=== PATIENT | female | born 1965 | race Caucasian/White ===

== ENCOUNTER 2016-09-19 20:38 | Emergency (ER) | payer BC ==
--- OUTSIDE RECORDS SUMMARY | 2016-09-19 22:14 | XMS REPORT | Continuity of Care Document ---
:1965 Author Organization [facility] ([facility]) Address [address] [place] [address] Phone [phone] Care Team Providers Name Role Phone Unavailable Primary Care Provider Unavailable Source Comments This disclosure is being made pursuant to the Care Everywhere program, applicable federal and state laws, and may not contain all informaitonavailable regarding this patient.[facility] ([facility]) Active Allergies and Adverse Reactions Not on File Current Medications Not on file Active Problems Not on file Social History Tobacco Use Types Packs/Day Years Used Date Never Assessed Last Filed Vital Signs Vital Sign Reading Time Taken Blood Pressure - - Pulse - - Temperature - - Respiratory Rate - - Height 1.63 m (5' 4.17") 08/19/2000 3:34 PM CDT Weight 109.997 kg (242 lb 8 oz) 08/19/2000 3:34 PM CDT Body Mass Index 41.4 08/19/2000 3:34 PM CDT Oxygen Saturation - - Plan of Care Health Maintenance Due Date Last Done Comments Hepatitis B Vaccine (1 of 3 - Primary Series) 1965 Tdap Vaccine 1977 Lipid Disorder Screening 1984 MMR Vaccine 1984 Td Vaccine 1984 Cervical Cancer Screening 1996 Mammogram 2006 Influenza Vaccine: Seasonal (#1) 12/12/2015 Results from Last 3 Months Not on file
[2016-09-19] MEDS ORDERED: ONDANSETRON 4 MG TAB.RAPDIS PO ONE (22:15)
[2016-09-19] MEDS ORDERED: KETOROLAC TROMETHAMINE 60 MG/2 ML VIAL IM ONE ×2 (22:15→22:22)
[2016-09-19 22:16] LABS: Urine Bilirubin Negative (NEGATIVE); Urine Blood 50 /ul (NEGATIVE); Urine Ketone Negative (NEGATIVE); Urine Nitrite Negative (NEGATIVE); Urine Protein 30 mg/dL (NEGATIVE); Urine Specific Gravity >=1.030 SP.GR. (1.005-1.010); Urine Urobilinogen Normal (NORMAL); Urine pH 5.5 pH (5.0-7.0)
--- NOTE | 2016-09-19 22:21 | ERNOTE ---
ER Female HPI Date of Service: 09/19/16 Stated Complaint: SIDE PAIN Presenting Symptoms: other - R flank pain Time Seen by Provider: 09/19/16 22:07 Source: patient Exam Limitations: no limitations Immunizations: IMMUNIZATION HX Immunizations Up to Date Yes History of Influenza Vaccine No Allergies/Adverse Reactions: Allergies codeine Adverse Reaction (Verified 09/19/16 20:56) Home Medications: HOME MEDICATIONS Venlafaxine HCl [Effexor] 75 mg PO DAILY 06/13/15 [Last Taken Unknown] Ciprofloxacin HCl 500 mg PO BID #20 tablet 09/19/16 [Last Taken Unknown] Naproxen [Naprosyn] 500 mg PO BID PRN #60 tab 09/19/16 [Last Taken Unknown] - History of Present Illness Narrative: Pt. comes in with c/o R flank pain for two days. Pt. denies any fevers, SOB, CP but does state that she has nausea and knows that she has head some "clinking " in the toilet as she feels that she has passed some kidney stones. Pt. has a hx of kidney stones in the past. Pt. denies any prehospital treatment or alleviating factors but states that movement or touching her back exacerbates the pain. Review of Systems - Review of Systems Constitutional: Present: no symptoms reported. Absent: recent illness, fever, chills, weakness, fatigue EYE: Present: no symptoms reported ENT: Present: no symptoms reported Respiratory: Present: no symptoms reported. Absent: shortness of breath, cough , wheezing Cardiology: Present: no symptoms reported. Absent: chest pain, palpitations, edema Gastrointestinal/Abdominal: Present: nausea. Absent: vomiting, diarrhea, abdominal pain Genitourinary: Present: pain - R flank. Absent: dysuria, decreased urinary output Musculoskeletal: Present: back pain - R flank. Absent: neck pain, joint pain Skin: Present: no symptoms reported. Absent: rash Neurological: Present: no symptoms reported. Absent: headache, dizziness/light- headedness, numbness, tingling All Other Systems: All systems neg except as marked - Patient's Past Medical History Patient History - Medical: Anxiety, Depression Patient History - Cardiac/Respiratory: No pertinent hx Patient History - Cancer: Ovarian Patient History - Surgical Procedures: Cholecystectomy, Hysterectomy, Other Patient History - Other: None - Social History Living Situations: home Abuse History: No History of abuse Psych History: Hx of Anxiety, Hx of Depression Alcohol Use: none Drug Use: none - Immunizations Immunizations Up to Date: Yes History of Influenza Vaccine: No Physical Exam - Physical Exam General Appearance: Present: wd/wn, alert, no apparent distress Eye Exam: Normal inspection: bilateral, PERRL: bilateral, EOMI: bilateral Ears, Nose, Throat: Present: normal ENT inspection, normal pharynx Neck: Present: normal inspection, nontender. Absent: lymphadenopathy (R), lymphadenopathy (L) Respiratory: Present: no respiratory distress, normal breath sounds, no accessory muscle use, chest nontender, lungs clear Cardiovascular/Chest: Present: regular rate, rhythm, no murmur, normal peripheral pulses Gastrointestinal/Abdominal: Present: normal bowel sounds, nondistended, soft, no organomegaly, tenderness - RLQ suprapubic Back Exam: Present: normal range of motion, no vertebral tenderness, CVA tenderness (R) Extremity Exam: Present: normal inspection, non-tender, normal range of motion, no edema Neurological Exam: Present: alert, oriented, normal mood/affect, no motor/ sensory deficits Skin Exam: Present: warm/dry, pallor ED Progress - Results and Orders Patient's Lab Results:: I have reviewed the patient's lab results. - Vital Signs Patient's Vital Signs:: I have reviewed the patient's vital signs. Vital Signs: Vital Signs 09/19/16 20:50 Temperature 36.2 C L Pulse Rate 55 L Respiratory 18 Rate Blood Pressure 142/90 O2 Sat by Pulse 98 Oximetry - CT/Ultrasound CT/Ultrasound Narrative: CT scan without any kidney or ureteral stones. - Progress/Reassessment Chief Complaint: Genitourinary Problem Progress:: Improved Departure Clinical Impression: Pyelonephritis - Departure Disposition: Home self-care Condition: Good Instructions: Pyelonephritis, Adult, [id number], Form - Excuse from Work, School, or Physical Activity Additional Instructions: Please follow up with primary provider in 2-3 days. Referrals: Alma Sofia [facility] [Primary Care Provider] - Prescriptions: Ciprofloxacin HCl 500 mg PO BID #20 tablet Naproxen [Naprosyn] 500 mg PO BID PRN #60 tab PRN Reason: Pain
[2016-09-19] MEDS ORDERED: ONDANSETRON 4 MG TAB.RAPDIS ONE (22:22)
[2016-09-19 22:34] LABS: Urine Appearance Cloudy; Urine Bacteria 4+; Urine Color Yellow; Urine Mucus Moderate - 2+
[2016-09-19 23:04] LABS: Hematocrit 38.9 % (37.0-47.0); Mean Cell Volume 81.6 fl (78-100); Mean Corpuscular Hemoglobin 27.3 pg (27-31); Mean Corpuscular Hgb Conc 33.4 g/dl (32-36); Mean Platelet Volume 8.5 fl (6.0-9.5); Neutrophil # 3.2 K/mm3 (1.3-6.0); Neutrophil % 57.7 % (42-75.0); Platelet Count 219 K/mm3 (150-450); Red Blood Count 4.77 M/mm3 (4.2-5.4); Red Cell Distribution Width 14.6 % (11.5-14.0); White Blood Count 5.6 K/mm3 (4.0-10.5)
[2016-09-19 23:19] LABS: Albumin * 3.5 gm/dl (3.4-5.0); Anion Gap 11.9 mmol/L (6.8-13.8); BUN/Creatinine Ratio 14.1 (9.0-21.6); Bilirubin, Total 1.1 mg/dL (0.0-1.1); Ca. Corrected For Albumin 9.3 mg/dL (8.4-10.2); Calcium * 9.2 mg/dL (7.9-10.9); Carbon Dioxide 28.9 mmol/L (24-32.6); Potassium 3.8 mmol/L (3.4-4.6); Total Protein 7.7 gm/dL (6.2-8.2)
[2016-09-19] MEDS ORDERED: CIPROFLOXACIN HCL 250 MG TABLET PO ONE (23:43)
[2016-09-19] MEDS ORDERED: CIPROFLOXACIN HCL 250 MG TABLET ONE (23:51)
[2016-09-20 03:04] VITALS: BP 138/78
== END 2016-09-19 23:55 | disposition home or self-care (01) ==
LOC: ER 20:38
DX: N12 Tubulo-interstitial nephritis, not specified as acute or chronic (principal); Z85.43 Personal history of malignant neoplasm of ovary; F41.8 Other specified anxiety disorders